=== PATIENT | male | born 1955 | race Caucasian/White ===

== ENCOUNTER 2016-08-14 18:00 | Emergency (ER) | payer MEDICAID ==
[~2016-08-14 18:00] MED LIST: ASPIRIN325 MG PO; NORVASC10 MG PO
[2016-08-14 18:25] LABS: BASOPHILS 0.3 % (0.0-2.0); EOSINOPHILS 2.4 % (0-7); HEMATOCRIT 45.7 % (42.0-54.0); HEMOGLOBIN 14.8 g/dL (13.5-17.5); IMMATURE GRANULOCYTES 0.2 % (0-5); LYMPHOCYTES 21.8 % (15-50); MCH 29.9 pg (26.0-34.0); MCHC 32.4 g/dL (31.0-37.0); MCV 92.3 fL (80.0-100.0); MEAN PLATELET VOLUME 10.8 fL (7.4-10.4); NEUTROPHILS 65.3 % (40-80); PLATELET COUNT 209 10x3/uL (130-400); RBC 4.95 10x6/uL (4.20-6.10); RDW 14.2 % (11.5-14.5); WBC 11.7 10x3/uL (4.8-10.8)
[2016-08-14 18:48] LABS: ALBUMIN 3.9 g/dL (3.4-5.0); ALKALINE PHOSPHATASE 66 U/L (46-116); ALT (SGPT) 27 U/L (10-68); BILIRUBIN - TOTAL 0.46 mg/dL (0.2-1.3); CALC OSMOLALITY 283 mosm/kg (275-300); CALCIUM 9.6 mg/dL (8.5-10.1); CHLORIDE - SERUM 101 mmol/L (98-107); CREATININE - SERUM 1.7 mg/dL (0.6-1.3); GLUCOSE 99 mg/dL (74-106); POTASSIUM - SERUM 4.4 mmol/L (3.5-5.1); PROTEIN - SERUM 7.6 g/dL (6.4-8.2); SODIUM 139 mmol/L (136-145); UREA NITROGEN 29 mg/dL (7-18); eGFR NON AFRICAN AMERICAN 44 mL/min (90-120)
[2016-08-14 18:58] LABS: TROPONIN-I < 0.017 ng/mL (0.000-0.060)
== END 2016-08-14 19:30 | disposition home or self-care (01) ==
LOC: D.ER 18:00
PROVIDERS: Emergency Medicine
DX: R00.2 Palpitations (principal); R53.83 Other fatigue; N28.9 Disorder of kidney and ureter, unspecified; I10 Essential (primary) hypertension; I44.7 Left bundle-branch block, unspecified

== ENCOUNTER 2016-10-07 08:02 | Emergency (ER) | payer MEDICAID ==
[2016-10-07 08:44] LABS: BASOPHILS 0.2 % (0.0-2.0); EOSINOPHILS 1.5 % (0-7); HEMATOCRIT 49.5 % (42.0-54.0); HEMOGLOBIN 16.3 g/dL (13.5-17.5); IMMATURE GRANULOCYTES 0.3 % (0-5); LYMPHOCYTES 13.2 % (15-50); MCH 30.2 pg (26.0-34.0); MCHC 32.9 g/dL (31.0-37.0); MCV 91.8 fL (80.0-100.0); MEAN PLATELET VOLUME 11.5 fL (7.4-10.4); NEUTROPHILS 76.8 % (40-80); PLATELET COUNT 197 10x3/uL (130-400); RBC 5.39 10x6/uL (4.20-6.10); RDW 14.1 % (11.5-14.5); WBC 11.8 10x3/uL (4.8-10.8)
[2016-10-07 09:00] LABS: ALBUMIN 3.8 g/dL (3.4-5.0); ANION GAP 15.6 mmol/L (8-16); BILIRUBIN - TOTAL 0.43 mg/dL (0.2-1.3); CALCIUM 9.9 mg/dL (8.5-10.1); CARBON DIOXIDE 25.9 mmol/L (21.0-32.0); CREATININE - SERUM 1.4 mg/dL (0.6-1.3); POTASSIUM - SERUM 4.5 mmol/L (3.5-5.1)
[2016-10-07 09:18] LABS: APPEARANCE CLEAR (CLEAR); BILIRUBIN NEGATIVE (NEGATIVE); COLOR YELLOW (YELLOW); GLUCOSE NEGATIVE (NEGATIVE); KETONE NEGATIVE (NEGATIVE); LEUKOCYTE ESTERASE NEGATIVE (NEGATIVE); NITRITE NEGATIVE (NEGATIVE); PROTEIN NEGATIVE (NEGATIVE); SPECIFIC GRAVITY 1.015 (1.005-1.020); UROBILINOGEN NORMAL (NORMAL)
== END 2016-10-07 10:45 | disposition home or self-care (01) ==
LOC: D.ER 08:02
PROVIDERS: Emergency Medicine
DX: R10.9 Unspecified abdominal pain (principal); R11.10 Vomiting, unspecified; R19.7 Diarrhea, unspecified; E86.0 Dehydration; S37.009A Unspecified injury of unspecified kidney, initial encounter; X58.XXXA Exposure to other specified factors, initial encounter; Y93.89 Activity, other specified; Y92.89 Other specified places as the place of occurrence of the external cause; I10 Essential (primary) hypertension; N28.9 Disorder of kidney and ureter, unspecified

== ENCOUNTER 2016-12-26 11:23 | Emergency (ER) | payer MEDICAID | END 2016-12-26 12:30 | disposition home or self-care (01) | LOC: D.ER 11:23 | DX: J06.9 Acute upper respiratory infection, unspecified (principal); J01.90 Acute sinusitis, unspecified; I10 Essential (primary) hypertension ==

== ENCOUNTER 2017-02-23 12:13 | Emergency (ER) | payer MEDICAID | END 2017-02-23 13:12 | disposition home or self-care (01) | LOC: D.ER 12:13 | DX: H66.91 Otitis media, unspecified, right ear (principal); J01.90 Acute sinusitis, unspecified; I10 Essential (primary) hypertension ==

== ENCOUNTER 2017-03-24 11:34 | Emergency (ER) | payer MEDICAID | END 2017-03-24 12:35 | disposition home or self-care (01) | LOC: D.ER 11:34 | DX: J01.90 Acute sinusitis, unspecified (principal) ==

== ENCOUNTER 2017-05-14 16:40 | Emergency (ER) | payer MEDICAID | END 2017-05-14 20:00 | disposition home or self-care (01) | LOC: D.ER 16:40 | DX: S53.402A Unspecified sprain of left elbow, initial encounter (principal); X50.0XXA Overexertion from strenuous movement or load, initial encounter; Y93.89 Activity, other specified; Y92.89 Other specified places as the place of occurrence of the external cause; I10 Essential (primary) hypertension ==

== ENCOUNTER 2017-07-12 10:39 | Emergency (ER) | payer MEDICAID ==
[2017-07-12 12:08] LABS: BASOPHILS 0.1 % (0-2); EOSINOPHILS 1.6 % (0-7); HEMATOCRIT 51.4 % (42.0-54.0); IMMATURE GRANULOCYTES 0.2 % (0-5); LYMPHOCYTES 16.3 % (15-50); MCH 30.7 pg (26.0-34.0); MCHC 33.1 g/dL (31.0-37.0); MCV 92.8 fL (80.0-100.0); MEAN PLATELET VOLUME 12.1 fL (7.4-10.4); MONOCYTES 6.9 % (2-11); NEUTROPHILS 74.9 % (40-80); PLATELET COUNT 200 10x3/uL (130-400); RBC 5.54 10x6/uL (4.20-6.10); RDW 13.9 % (11.5-14.5); WBC 9.2 10x3/uL (4.8-10.8)
[2017-07-12 12:29] LABS: ALBUMIN 4.1 g/dL (3.4-5.0); BILIRUBIN - TOTAL 0.5 mg/dL (0.2-1.3); CALCIUM 10.4 mg/dL (8.5-10.1); CARBON DIOXIDE 28.1 mmol/L (21.0-32.0); CREATININE - SERUM 1.4 mg/dL (0.6-1.3); POTASSIUM - SERUM 4.1 mmol/L (3.5-5.1); PROTEIN - SERUM 8.1 g/dL (6.4-8.2)
== END 2017-07-12 13:35 | disposition home or self-care (01) ==
LOC: D.ER 10:39
PROVIDERS: Nurse Practitioner Family
DX: J06.9 Acute upper respiratory infection, unspecified (principal); R42 Dizziness and giddiness

== ENCOUNTER → 2017-08-01 13:05 | Outpatient (CLI) | payer MEDICAID ==
--- NOTE | ~2017-08-01 | EC ---
PATIENT:ALMA ALMANZAR DATE OF SERVICE: 08/01/17 SEX: M MEDICAL RECORD: [id number] DATE OF : 51 LOCATION:[facility] AGE OF PATIENT: 61 ADMISSION DATE: 08/01/17 REFERRING PHYSICIAN: INTERPRETING PHYSICIAN: CORBY SEALS MD ECHOCARDIOGRAM REPORT ECHO CHARGES 4 ECHO COMPLETE CLINICAL DIAGNOSIS: DYSPNEA/ HTN/LBBB ECHOCARDIOGRAPHIC MEASUREMENTS (adult normal given) AC root (d.<3.7cm) 4.1 cm LV Septum d (<1.2 cm> 1.5 cm Valve Excursion 1.7 cm LV Septum (systole) 1.9 cm Left Atria (s.<4.0cm> 3.8 cm LVPW d(<1.2cm) 1.5 cm RV (d.<2.3cm) 4.1 cm LVPW (sytole) 1.8 cm LV diastole(<5.6CM) 5.5 cm MV E-F(>70mm/sec) cm LV systole 3.9 cm LVOT Diameter 2.6 cm MV exc.(>10mm) 2.3 cm Est.ejection fraction (50-75%) % Pericardial Effusion N DOPPLER: LVIT cm/sec A 82.0 cm/sec E 64.0 cm/sec LA cm/sec RVSP 20 mmHg LVOT 90 cm/sec AOP1/2T m/s Asc. Ao 153 cm/sec RVOT 98 cm/sec RA cm/sec PA 178 cm/sec AV Gradient Peak 9.11 mmHg AV Mean 5.50 mmHg AV Area 2.5 cm MV Gradient Peak 4.16 mmHg MV Mean 1.54 mmHg MV Area cm COMMENTS: Remotely Piloted Vehicle Controller: Dharmesh SALGADO Gift Manager: Allan Seals TAPE# PACS DATE OF SERVICE: 08/01/2017 Transthoracic Echocardiogram FINDINGS: 1. There is asynchronous wall motion consistent with bundle branch block. 2. The left atrium is upper limits of normal to mildly dilated. 3. The mitral valve has normal structure and normal function with no significant mitral regurgitation. 4. The tricuspid valve is normal in structure and normal function. The RVSP is ECHOCARDIOGRAM REPORT [id number] ALMA ALMANZAR normal. 5. The inflow characteristics across the mitral valve indicate diastolic dysfunction. 6. On wall motion analysis in the left ventricle, it is difficult to see endocardium but there is the suggestion of mild inferior lateral hypokinesis versus the asynchronous wall motion. CONCLUSIONS: The patient has evidence of left ventricular hypertrophy and hypertensive heart disease with possible wall motion abnormality in the inferior lateral aspect of the heart consistent with a mild decrease in systolic function with ejection fraction of 45% to 50%. TRANSINT:[id number] Voice Confirmation ID: [id number] DOCUMENT ID: [id number] CORBY SEALS MD CC: [id number] DICTATION DATE: 08/01/171653 STOCK PARTS FABRICATOR: 08/01/172033 [facility] [address] [id number]
== END | disposition home or self-care (01) ==
LOC: D.ECHO 13:05
DX: R06.00 Dyspnea, unspecified (principal); I10 Essential (primary) hypertension; I44.7 Left bundle-branch block, unspecified

== ENCOUNTER 2017-08-15 06:01 | Outpatient (CLI) | payer MEDICAID ==
[~2017-08-15] VITALS: Ht 182.9 cm; Wt 121.4 kg
--- NOTE | ~2017-08-15 | HEMODYNAMI ---
PATIENT:ALMA ALMANZAR MEDICAL RECORD: [id number] : 51 LOCATION:[facility] ADMISSION DATE: 08/15/17 Generatedon:08/15/20178:19 Patient name: ALMA ALMANZAR Patient #: [id number] SSN: DO B: 1955 Date of study: 08/15/2017 Page: Of Hemodynamic Procedure Report Patient Data Patient Demographics Procedure consent was obtained First Name: ALMA Gender: Male Last Name: JENELLE : 1955 [facility] Initial: KENDRA Age: 61 year(s) Patient #: [id number] Race: Unknown Additional ID: [id number] Contact details [address]: [address] [place] [address] rd State: [place] City: [place] Zip code: [address] Past Medical History Allergies Allergen Reaction Date Comments Reported Other allergy 08/15/2017 keflex, levaquin Admission Admission Data Admission Date: 08/15/2017 Admission Time: 6:01 Procedure Procedure Types Cath Procedure Diagnostic Procedure LHC LHC w/Coronaries Procedure Description Procedure Date Procedure Date: 08/15/2017 Procedure Start Time: 8:07 Procedure End Time: 8:19 Procedure Staff Name Function Eduardo Roberts MD Performing Physician Sheila Peterson RT Monitor Mj Lr RT Scrub Jeff Morales RN Nurse Procedure Data Cath Procedure Fluoroscopy Diagnostic fluoroscopy Total fluoroscopy Time: 3.1 time: 3.1 min min Diagnostic fluoroscopy Total fluoroscopy dose: 3.1 dose: 3.1 mGy mGy Contrast Material Contrast Material Type Amount (ml) Isovue 300 60 Entry Location Entry Primary Successful Side Size Upsize Upsize Entry Closure Gonsalez ccessful Closure Location (Fr) 1 (Fr) 2 (Fr) Remarks Device Remarks Radial Right 6 Fr Mechanical artery Short Compression Estimated blood loss: 5 ml Diagnostic catheters Device Type Used For End Catheter Placement DIAGNOSTIC Suring 110cm 5 LV Angiography Fr catheter ([id number]) DIAGNOSTIC Suring 110cm 5 Left Coronary Fr catheter (078441) Angiography DIAGNOSTIC AR MOD 5Fr Right Coronary Catheter ([id number]) Angiography Procedure Complications No complications Procedure Medications Medication Administration Route Dosage Lidocaine 2% added to field 20 Heparin Flush Bag added to field 2 bags (1000units/500ml NS) 0.9% NaCl I.V. 100 ml/hr Radial Cocktail I.A. 1 syringe (Verapomil 2mg/Nitro 400mcg/Heparin 1500units) Benadryl I.V. 50 mg Hemodynamics Rest Heart Rate: 102 (bpm) Pressure Samples Time Site Value (mmHg) Purpose Heart Use Rate(bpm) 8:10 LV 132/1,4 EDP 57 8:10 AO 134/86(105) Pullback 89 8:10 LV 141/4,0 Pullback 89 Gradients Valve Time Site 1 Site 2 Mean SEP/DFP Peak To Heart Use (mmHg) (sec/min) Peak Rate (mmHg) (bpm) Aortic 8:10 LV AO 6 6 7 89 141/4,0 134/86(105) Calculations Valve P-P Mean Valve Index Valve Source Name Gradient Area Flow (cm2) Aortic 7 6 7 6 Snapshots Pre Cath Intra NCS Post Cath Vital Signs Time Heart Resp SPO2 etCO2 NIBP (mmHg) Rhythm Pain Sedation Rate (ipm) (%) (mmHg) Status Level (bpm) 7:54:08 66 12 98 33.8 183/99(140) NSR 0 (11) 10(A) , No pain 7:59:11 63 12 97 30.8 133/101(126) NSR 0 (11) 10(A) , No pain 8:04:53 70 15 97 34.5 181/87(146) NSR 0 (11) 10(A) , No pain 8:10:31 85 13 97 26.3 175/100(137) NSR 0 (11) 10(A) , No pain 8:15:30 76 14 95 29.3 178/97(127) NSR 0 (11) 10(A) , No pain Medications Time Medication Route Dose Verified Delivered Reason Notes E ffectiveness by by 7:54:45 Lidocaine 2% added 20ml Eduardo Eduardo for local to vial Alejandra Roberts MD anesthetic field AYALA 7:54:54 Heparin Flush added 2 bags Eduardo Eduardo used for Bag to Alejandra Roberts MD procedure (1000units/500ml field AYALA NS) 7:55:03 0.9% NaCl I.V. 100 Eduardo Buffie Per ml/hr Alejandra castro MD 8:08:17 Radial Cocktail I.A. 1 Eduardo Eduardo for (Verapomil syringe Alejandra Roberts MD vasodilation 2mg/Nitro MD 400mcg/Heparin 1500units) 8:10:59 Benadryl I.V. 50 mg Eduardo Buffie Per Alejandra castro MD Procedure Log Time Note 7:36:46 Jeff Morales RN sent for patient. Start room use. 7:36:48 Time tracking: Regular hours 7:36:53 Plan of Care:Hemodynamics will remain stable., Cardiac rhythm will remain stable., Comfort level will be maintained., Respiratory function will remain adequate., Patient/ family verbilizes understanding of procedure., Procedure tolerated without complication., Recovers from procedure without complications.. 7:45:08 Patient received from Pre/Post Procedure Room to CCL 1 Alert and oriented. Tansferred to table in Supine position. 7:45:09 Warm blankets applied, and mary ellen hugger turned on for patient comfort. 7:45:09 Correct patient and procedure confirmed by team. 7:45:11 Signed procedure consent form obtained from patient. 7:45:12 ECG and BP/O2 sat monitors applied to patient. 7:45:12 Full Disclosure recording started 7:52:59 Vital chart was started 7:53:03 Rhythm: sinus rhythm 7:53:14 H&P Date Dictated: 08/10/2017 Within 30 days and on chart., H&P Addendum completed by physician on day of procedure. (MUST COMPLETE FOR ALL OUTPATIENTS). 7:53:15 Pre-procedure instructions explained to patient. 7:53:16 Pre-op teaching completed and patient verbalized understanding. 7:53:17 Family in waiting room. 7:53:21 Patient NPO since Midnight. 7:53:38 Patient allergic to Other allergykeflex, levaquin 7:53:40 Is the patient allergic to Iodine/contrast media? No. 7:53:42 Is patient on blood thinner?No 7:53:51 Patient diabetic? Yes. 7:53:53 If diabetic: On Metformin? Yes 7:53:55 If on Metformin: Last Dose? 08/13/2017 7:53:58 Previous problem with sedation/anesthesia? No ? 7:53:59 Snore? Yes 7:54:01 Sleep apnea? No 7:54:02 Deviated septum? No 7:54:02 Opens mouth fully? Yes 7:54:03 Sticks out tongue? Yes 7:54:06 Airway obstruction? No ? 7:54:09 Dentures? No ? 7:54:18 Modified Avtar's test Ulnar < 7 seconds 7:54:20 Patient pain scale 0/10 ?. 7:54:45 Lidocaine 2% 20ml vial added to field was administered by Eduardo Roberts MD; for local anesthetic; 7:54:54 Heparin Flush Bag (1000units/500ml NS) 2 bags added to field was administered by Eduardo Roberts MD; used for procedure; 7:55:03 0.9% NaCl 100 ml/hr I.V. was administered by Jeff Morales RN; Per physician; 7:55:19 PATIENT WANTS TO DRIVE HIMSELF HOME. REFUSES TO LET US PREP GROIN. NO SEDATION WILL BE GIVEN. 7:55:44 IV patent on arrival in right forearm with 0.9% NaCl at [facility]. 7:55:47 Lab results completed and on chart. 7:55:51 Right Radial area was prepped with chlora-prep and draped in sterile fashion 7:55:52 Alarms reviewed by R. N. 7:55:53 Sharps counted by scrub and verified by R.N. 7:55:56 Use device set Radial Dx or PCI 7:55:57 Medline Cath Pack ([id number]) opened to sterile field. 7:55:58 ACIST Syringe (00189) opened to sterile field. 7:55:58 Bag Decanter (2002) opened to sterile field. 7:55:59 SHEATH 6FR Slender ([id number]) opened to sterile field. 7:55:59 DIAGNOSTIC WIRE .035 260cm J wire (599302) opened to sterile field. 7:56:00 ACIST Hand Control (53577) opened to sterile field. 7:56:00 ACIST Manifold (84052) opened to sterile field. 7:56:01 Tegaderm 4 x 4 (1626W) opened to sterile field. 7:56:02 MBrace Wrist Support ([id number]) opened to sterile field. 7:57:18 Final Timeout: patient, procedure, and site verified with staff and physician. All members of the team are in agreement. 7:57:26 Right Radial site verified by team. 7:57:30 Physical assessment completed. ASA score P 2 - A patient with mild systemic disease as per Eduardo Roberts MD. 7:57:34 Sedation plan: IV Moderate Sedation Medication:Versed, Fentanyl 8:00:18 Baseline sample Acquired. 8:05:58 Zero performed for pressure channel P1 8:07:09 Procedure started. 8:07:13 Local anesthetic to right radial artery with Lidocaine 2% by Eduardo Roberts MD.INITIAL ACCESS ONLY 8:07:22 A 6 Fr Short sheath was inserted into the Right Radial artery 8:08:13 A DIAGNOSTIC Suring 110cm 5 Fr catheter (178009) was advanced over the wire and used for LV Angiography. 8:08:17 Radial Cocktail (Verapomil 2mg/Nitro 400mcg/Heparin 1500units) 1 syringe I.A. was administered by Eduardo Roberts MD; for vasodilation; 8:10:23 LV gram done using [place] 8:10:25 LV hemodynamics recorded. 8:10:28 Injector settings: Ml/sec: 12, Volume: 8, 8:10:59 Benadryl 50 mg I.V. was administered by Jeff Morales RN; Per physician; 8:11:13 A DIAGNOSTIC Suring 110cm 5 Fr catheter (400658) was advanced over the wire and used for Left Coronary Angiography. 8:12:33 Catheter removed. 8:12:43 A DIAGNOSTIC AR MOD 5Fr Catheter ([id number]) was advanced over the wire and used for Right Coronary Angiography. 8:15:01 Catheter removed. 8:15:11 Sheath removed intact; hemostasis achieved with Mechanical Compression to the Right Radial artery. 8:15:13 Procedure ended.(Physican Out) 8:15:29 Fluoroscopy time 03.10 minutes. 8:15:34 Fluoroscopy dose: 3.1 mGy 8:15:34 Flurop Dose total: 3.1 8:15:56 Contrast amount:Isovue 300 60ml. 8:15:58 Sharps counted by scrub and verified by R.N. 8:16:00 TR band inflated with 12cc of air. 8:16:01 Insertion/operative site no bleeding no hematoma. 8:16:07 Post right radial artery:stable, clean and dry 8:16:09 Post Procedure Pulses reassessed and unchanged 8:16:11 Post-procedure physical assessment completed. ASA score P 2 - A patient with mild systemic disease as per Eduardo Roberts MD. 8:16:14 Post procedure rhythm: unchanged. 8:16:16 Estimated blood loss: 5 ml 8:16:18 Post procedure instruction explained to patient.Patient verbalizes understanding. 8:16:18 Patient needs reinforcement of post procedure teaching. 8:16:41 Procedure and supply charges have been captured, reviewed, submitted and are correct. 8:16:45 Procedure Complication : No complications 8:16:48 See physician's report for complete and final results. 8:17:00 TR BAND Standard ([id number]) opened to sterile field. 8:18:50 Vital chart was stopped 8:18:52 Report given to Pre/Post Procedure Room. 8:18:55 Patient transfered to Pre/Post Procedure Room with Stretcher. 8:19:02 Procedure ended. 8:19:02 Full Disclosure recording stopped 8:19:06 End room use (Document Last) Device Usage Item Name Manufacture Quantity Catalog Hospital Part Current Minima l Lot# / Number Charge Number Stock Stock Serial# Code Medline Cath Cardinal 1 [id number] 31108 418840 5 [facility] ([id number]) ACIST Acist 1 00283 307694 954769 449093 20 Syringe Medical (24482) Systems Inc Bag Decanter Microtek 1 2001S 974834 72405 835935 5 () Medical Inc. SHEATH 6FR Terumo 1 [id number] 890119 449439 517064 40 Slender ([id number]) DIAGNOSTIC St Trey 1 179576 604551 006980 061689 30 WIRE .035 260cm J wire (022843) ACIST Hand Acist 1 10012 414795 245869 911699 5 Control Medical (92955) Systems Inc ACIST Acist 1 84746 846288 331425 067737 5 Manifold Medical (08582) Systems Inc Tegaderm 4 x 3M 1 1626W 612998 117770 670658 5 4 (1626W) MBrace Wrist Advanced 1 140-0250-00 908585 62284 136714 5 Support Vascular ([id number]) Dynamics DIAGNOSTIC Terumo 1 405019 092720 892848 559287 5 Suring 110cm 5 Fr catheter (183453) DIAGNOSTIC Cardinal 1 [id number] 054886 508530 779480 15 AR MOD 5Fr Health Catheter (103238J) TR BAND Terumo 1 PFT61-PES 707266 217858 254621 40 Standard ([id number]) Signature Audit [place] Stage Time Signature Unsigned Intra-Procedure 08/15/2017 Sheila 8:19:19 AM Counts RT(R) Signatures Monitor : Sheila Signature : Counts RT Date : Time : [id number] [place] [address]
[2017-08-15] MEDS ORDERED: TOPROL XL50 MG PO (06:19)
[2017-08-15] MEDS ORDERED: PRINIVIL20 MG (06:20)
[2017-08-15] MEDS ORDERED: CLEOCIN HCL300 MG PO (06:21)
[2017-08-15 06:29] VITALS: BP 121/82; Ht 182.9 cm; Wt 121.4 kg
[2017-08-15 07:03] LABS: HEMATOCRIT 46.4 % (42.0-54.0); HEMOGLOBIN 15.2 g/dL (13.5-17.5); LYMPHOCYTES 31.1 % (15-50); MCH 29.6 pg (26.0-34.0); MCHC 32.8 g/dL (31.0-37.0); MCV 90.3 fL (80.0-100.0); MEAN PLATELET VOLUME 10.9 fL (7.4-10.4); NEUTROPHILS 60.7 % (40-80); PLATELET COUNT 175 10x3/uL (130-400); RBC 5.14 10x6/uL (4.20-6.10); RDW 14.4 % (11.5-14.5); WBC 7.2 10x3/uL (4.8-10.8)
[2017-08-15 07:07] LABS: ANION GAP 13.1 mmol/L (8-16); CALCIUM 9.1 mg/dL (8.5-10.1); CARBON DIOXIDE 24.7 mmol/L (21.0-32.0); CREATININE - SERUM 1.2 mg/dL (0.6-1.3); POTASSIUM - SERUM 3.8 mmol/L (3.5-5.1)
== END 2017-08-15 10:39 | disposition home or self-care (01) ==
LOC: D.CATH 06:01
PROVIDERS: Internal Medicine Cardiovascular Disease
DX: I25.10 Atherosclerotic heart disease of native coronary artery without angina pectoris (principal); I42.9 Cardiomyopathy, unspecified; E16.2 Hypoglycemia, unspecified; K58.9 Irritable bowel syndrome, unspecified; Z01.812 Encounter for preprocedural laboratory examination

== ENCOUNTER → 2017-12-13 12:25 | Outpatient (CLI) | payer MEDICAID ==
[2017-08-15 06:29] VITALS: BMI 36.3
[~2017-12-13 12:25] MED LIST changes: +BACTRIM DS TABL1 TAB PO; +CLEOCIN HCL300 MG PO; +DIFLUCAN100 MG PO; +FLAGYL500 MG PO; +FLORASTOR250 MG PO; +PRINIVIL20 MG; +TOPROL XL50 MG PO
== END | disposition home or self-care (01) ==
LOC: D.MRI 12:25
DX: R97.20 Elevated prostate specific antigen [PSA] (principal)

== ENCOUNTER 2018-01-15 23:33 | Emergency (ER) | payer MEDICAID ==
[~2018-01-15] VITALS: Ht 182.9 cm; Wt 118.6 kg
[~2018-01-15 23:33] MED LIST changes: -BACTRIM DS TABL1 TAB PO; -DIFLUCAN100 MG PO; -FLAGYL500 MG PO; -FLORASTOR250 MG PO
[2018-01-15 23:41] VITALS: Ht 182.9 cm; Wt 118.6 kg
[2018-01-16] MEDS ORDERED: BACTRIM DS TABL1 TAB PO (00:29)
[2018-01-16] MEDS ORDERED: DIFLUCAN100 MG PO (00:29)
[2018-01-16 00:37] VITALS: BP 128/79
[2018-03-12] MEDS ORDERED: CLEOCIN HCL300 MG PO (12:30)
[2018-03-12] MEDS ORDERED: FLUTICASONE PRO16 GM NASAL (12:32)
== END 2018-01-16 00:41 | disposition home or self-care (01) ==
LOC: D.ER 23:33
DX: L03.012 Cellulitis of left finger (principal); B35.2 Tinea manuum; I50.9 Heart failure, unspecified; I10 Essential (primary) hypertension

== ENCOUNTER 2018-01-31 04:32 | Emergency (ER) | payer MEDICAID ==
[~2018-01-31] VITALS: Ht 182.9 cm; Wt 118.2 kg
[~2018-01-31 04:32] MED LIST changes: +BACTRIM DS TABL1 TAB PO; +DIFLUCAN100 MG PO
[2018-01-31 05:02] VITALS: Ht 182.9 cm; Wt 118.2 kg
[2018-01-31 05:55] LABS: BASOPHILS 0.2 % (0-2); EOSINOPHILS 1.4 % (0-7); HEMATOCRIT 45.9 % (42.0-54.0); HEMOGLOBIN 15.1 g/dL (13.5-17.5); IMMATURE GRANULOCYTES 0.2 % (0-5); MCH 30.4 pg (26.0-34.0); MCHC 32.9 g/dL (31.0-37.0); MCV 92.4 fL (80.0-100.0); MEAN PLATELET VOLUME 10.8 fL (7.4-10.4); NEUTROPHILS 78.2 % (40-80); PLATELET COUNT 194 10x3/uL (130-400); RBC 4.97 10x6/uL (4.20-6.10); RDW 14.2 % (11.5-14.5); WBC 13.2 10x3/uL (4.8-10.8)
[2018-01-31 06:32] LABS: ALBUMIN 3.5 g/dL (3.4-5.0); ALKALINE PHOSPHATASE 64 U/L (46-116); ALT (SGPT) 19 U/L (10-68); AMYLASE - SERUM 62 U/L (25-115); BILIRUBIN - TOTAL 0.43 mg/dL (0.2-1.3); CALC OSMOLALITY 282 mosm/kg (275-300); CALCIUM 9.6 mg/dL (8.5-10.1); CARBON DIOXIDE 30.4 mmol/L (21.0-32.0); CHLORIDE - SERUM 102 mmol/L (98-107); CREATININE - SERUM 1.6 mg/dL (0.6-1.3); GLUCOSE 101 mg/dL (74-106); LIPASE 341 U/L (73-393); POTASSIUM - SERUM 4.2 mmol/L (3.5-5.1); PROTEIN - SERUM 7.1 g/dL (6.4-8.2); SODIUM 140 mmol/L (136-145); UREA NITROGEN 24 mg/dL (7-18); eGFR NON AFRICAN AMERICAN 46 mL/min (90-120)
[2018-01-31 06:34] LABS: TROPONIN-I < 0.017 ng/mL (0.000-0.060)
[2018-01-31 07:08] LABS: APPEARANCE HAZY (CLEAR); BILIRUBIN NEGATIVE (NEGATIVE); COLOR YELLOW (YELLOW); GLUCOSE NEGATIVE (NEGATIVE); KETONE NEGATIVE (NEGATIVE); NITRITE NEGATIVE (NEGATIVE); PROTEIN NEGATIVE (NEGATIVE); SPECIFIC GRAVITY 1.015 (1.005-1.020); UROBILINOGEN NORMAL (NORMAL)
[2018-01-31 07:10] LABS: BACTERIA FEW /hpf (NONE SEEN); EPITHELIAL CELLS OCC /hpf (0-5); GRANULAR CAST RARE /lpf (NONE SEEN); MUCUS <1+ /lpf (NONE SEEN); WHITE CELLS - URINE 0-5 /hpf (0-5)
[2018-01-31] MEDS ORDERED: FLORASTOR250 MG PO (08:49)
[2018-01-31] MEDS ORDERED: FLAGYL500 MG PO (08:49)
[2018-01-31 09:23] VITALS: BP 152/84
[2018-03-12] MEDS ORDERED: CLEOCIN HCL300 MG PO (12:30)
[2018-03-12] MEDS ORDERED: FLUTICASONE PRO16 GM NASAL (12:32)
== END 2018-01-31 09:20 | disposition home or self-care (01) ==
LOC: D.ER 04:32
PROVIDERS: Family Medicine
DX: R10.9 Unspecified abdominal pain (principal); K52.9 Noninfective gastroenteritis and colitis, unspecified; K56.7 Ileus, unspecified; R11.0 Nausea; I10 Essential (primary) hypertension

== ENCOUNTER 2018-02-06 01:21 | Emergency (ER) | payer MEDICAID ==
[~2018-02-06] VITALS: Ht 182.9 cm; Wt 113.4 kg
[~2018-02-06 01:21] MED LIST changes: +FLAGYL500 MG PO; +FLORASTOR250 MG PO
[2018-02-06 01:33] VITALS: Ht 182.9 cm; Wt 113.4 kg
[2018-02-06 02:11] LABS: BASOPHILS 0.2 % (0-2); EOSINOPHILS 1.1 % (0-7); HEMATOCRIT 45.3 % (42.0-54.0); HEMOGLOBIN 15.1 g/dL (13.5-17.5); IMMATURE GRANULOCYTES 0.2 % (0-5); LYMPHOCYTES 10.7 % (15-50); MCH 30.6 pg (26.0-34.0); MCHC 33.3 g/dL (31.0-37.0); MCV 91.9 fL (80.0-100.0); MEAN PLATELET VOLUME 10.4 fL (7.4-10.4); MONOCYTES 6.2 % (2-11); NEUTROPHILS 81.6 % (40-80); PLATELET COUNT 192 10x3/uL (130-400); RBC 4.93 10x6/uL (4.20-6.10); WBC 11.7 10x3/uL (4.8-10.8)
[2018-02-06 02:23] LABS: ALBUMIN 3.7 g/dL (3.4-5.0); BILIRUBIN - TOTAL 0.24 mg/dL (0.2-1.3); CALCIUM 9.5 mg/dL (8.5-10.1); CREATININE - SERUM 1.6 mg/dL (0.6-1.3); PROTEIN - SERUM 7.5 g/dL (6.4-8.2)
[2018-02-06 02:46] LABS: APPEARANCE HAZY (CLEAR); BILIRUBIN NEGATIVE (NEGATIVE); COLOR DK YELLOW (YELLOW); GLUCOSE NEGATIVE (NEGATIVE); KETONE NEGATIVE (NEGATIVE); NITRITE NEGATIVE (NEGATIVE); PROTEIN 1+ mg/dL (NEGATIVE); UROBILINOGEN NORMAL (NORMAL)
[2018-02-06 02:47] LABS: BACTERIA MODERATE /hpf (NONE SEEN); EPITHELIAL CELLS 0-5 /hpf (0-5); HYALINE CAST 0-5 /lpf (NONE SEEN); RED CELLS - URINE 0-5 /hpf (0-5)
[2018-02-06] MEDS ORDERED: ZOFRAN ODT4 MG/UDTAB PO (03:19)
[2018-02-06 03:26] VITALS: BP 147/93
[2018-03-12] MEDS ORDERED: CLEOCIN HCL300 MG PO (12:30)
[2018-03-12] MEDS ORDERED: FLUTICASONE PRO16 GM NASAL (12:32)
== END 2018-02-06 04:52 | disposition home or self-care (01) ==
LOC: D.ER 01:21
PROVIDERS: Family Medicine
DX: R10.9 Unspecified abdominal pain (principal); R11.2 Nausea with vomiting, unspecified; I10 Essential (primary) hypertension

== ENCOUNTER → 2018-02-09 07:50 | Outpatient (CLI) | payer MEDICAID ==
[2018-02-06 01:33] VITALS: BMI 35.3
[~2018-02-09 07:50] MED LIST changes: +FLOMAX0.4 MG PO; +FLUTICASONE PRO16 GM NASAL; +NORCO 10-325 TA1 TAB PO; +NORCO 7.5/325 T1 TA1 PO; +ZOFRAN ODT4 MG/UDTAB PO
== END | disposition home or self-care (01) ==
LOC: D.US 07:50
DX: R10.11 Right upper quadrant pain (principal)

== ENCOUNTER 2018-02-10 22:22 | Emergency (ER) | payer MEDICAID ==
[~2018-02-10] VITALS: Ht 182.9 cm; Wt 110.0 kg
[~2018-02-10 22:22] MED LIST changes: -FLOMAX0.4 MG PO; -FLUTICASONE PRO16 GM NASAL; -NORCO 10-325 TA1 TAB PO; -NORCO 7.5/325 T1 TA1 PO
[2018-02-10 22:27] VITALS: Ht 182.9 cm; Wt 110.0 kg
[2018-02-10 23:25] LABS: HEMATOCRIT 42.7 % (42.0-54.0); HEMOGLOBIN 14.4 g/dL (13.5-17.5); LYMPHOCYTES 10.7 % (15-50); MCH 30.5 pg (26.0-34.0); MCHC 33.7 g/dL (31.0-37.0); MCV 90.5 fL (80.0-100.0); MEAN PLATELET VOLUME 10.2 fL (7.4-10.4); NEUTROPHILS 81.8 % (40-80); PLATELET COUNT 195 10x3/uL (130-400); RBC 4.72 10x6/uL (4.20-6.10); RDW 13.6 % (11.5-14.5)
[2018-02-10 23:39] LABS: ALBUMIN 3.4 g/dL (3.4-5.0); ANION GAP 12.2 mmol/L (8-16); BILIRUBIN - TOTAL 0.33 mg/dL (0.2-1.3); CALCIUM 8.6 mg/dL (8.5-10.1); CARBON DIOXIDE 29.6 mmol/L (21.0-32.0); CREATININE - SERUM 1.4 mg/dL (0.6-1.3); POTASSIUM - SERUM 3.8 mmol/L (3.5-5.1); PROTEIN - SERUM 7.1 g/dL (6.4-8.2)
[2018-02-10] MEDS ORDERED: NORCO 7.5/325 T1 TA1 PO (23:48)
[2018-02-11 01:55] VITALS: BP 126/69
[2018-03-12] MEDS ORDERED: CLEOCIN HCL300 MG PO (12:30)
[2018-03-12] MEDS ORDERED: FLUTICASONE PRO16 GM NASAL (12:32)
== END 2018-02-11 00:58 | disposition home or self-care (01) ==
LOC: D.ER 22:22
PROVIDERS: Emergency Medicine
DX: K80.50 Calculus of bile duct without cholangitis or cholecystitis without obstruction (principal); K80.20 Calculus of gallbladder without cholecystitis without obstruction; I10 Essential (primary) hypertension

== ENCOUNTER 2018-03-13 07:36 | Day surgery (SDC) | payer MEDICAID ==
[~2018-03-13] VITALS: Ht 182.9 cm; Wt 112.5 kg
--- NOTE | ~2018-03-13 | OP ---
PATIENT NAME: ALMA ALMANZAR MEDICAL RECORD: [id number] :51 LOCATION:D.[facility] ADMISSION DATE: SURGEON: SANTANA DE LA ROSA MD DATE OF OPERATION: 03/13/2018 PREOPERATIVE DIAGNOSES: 1. Biliary dyskinesia. 2. Hypertension. 3. Coronary artery disease with history of CT. POSTOPERATIVE DIAGNOSES: 1. Biliary dyskinesia. 2. Hypertension. 3. Coronary artery disease with history of CT. PROCEDURE: Laparoscopic cholecystectomy. SURGEON: Santana De La Rosa MD REPORT OF PROCEDURE: The patient's abdomen was prepped and draped in sterile fashion. A skin incision was made on the superior aspect of the umbilicus, 0 Vicryls were placed in the fascia bilaterally and the fascia was incised with 15-blade. I then bluntly entered the peritoneal cavity and placed a 12-mm Franck port. Under direct visualization, a 5 mm trocar was placed in the epigastrium and 2 more 5-mm trocars were placed in the right subcostal region. The gallbladder was noted to be distended with some acute inflammatory changes on its inferior aspect. Any inflammatory changes and adhesions were teased down with blunt dissection. The cystic artery and cystic duct were dissected free and these were clipped proximally and distally and ligated in standard fashion. The gallbladder was taken off the liver bed and placed in the right upper quadrant. Any bleeding from the liver bed was then treated with electrocautery. We irrigated out the right upper quadrant and assured there was no sign of any bleeding or bile leakage. At this point, the ports and insufflation were removed and the gallbladder was taken out through the umbilicus. The umbilical fascia was closed with interrupted 0 Vicryls times 3. The wounds were then irrigated out with normal saline and infused with 10 mL of 0.25% Marcaine with epinephrine. The skin incisions were all closed with subcutaneous 5-0 Monocryl and dressed appropriately. COMPLICATIONS: None. CONDITION: Stable. ANESTHESIA: General endotracheal and local. BLOOD LOSS: Minimal. TRANSINT:[id number] Voice Confirmation ID: [id number] DOCUMENT ID: [id number] OPERATIVE REPORT [id number] ALMA ALMANZAR SANTANA DE LA ROSA MD CC: JAI WILLIS [id number] DICTATION DATE: 03/13/18 1301 SAT ACT INSTRUCTOR: 03/13/18 1306 [facility] [address] [facility] [place] [address]
[~2018-03-13 07:36] MED LIST changes: +FLUTICASONE PRO16 GM NASAL; +NORCO 7.5/325 T1 TA1 PO
[2018-03-13 07:51] LABS: HEMATOCRIT 45.2 % (42.0-54.0); HEMOGLOBIN 15.1 g/dL (13.5-17.5); MCH 30.9 pg (26.0-34.0); MCHC 33.4 g/dL (31.0-37.0); MCV 92.4 fL (80.0-100.0); RBC 4.89 10x6/uL (4.20-6.10); RDW 14.4 % (11.5-14.5); WBC 8.1 10x3/uL (4.8-10.8)
[2018-03-13 08:33] VITALS: BP 147/84; Ht 182.9 cm; Wt 112.5 kg
[2018-03-13] MEDS ORDERED: NORCO 10-325 TA1 TAB PO (12:58)
[2018-03-13] MEDS ORDERED: FLOMAX0.4 MG PO (21:13)
== END 2018-03-13 15:05 | disposition home or self-care (01) ==
LOC: D.OPS 07:36 → D.PAN 09:30 → D.OPS 10:00
PROVIDERS: Anesthesiology
DX: K80.10 Calculus of gallbladder with chronic cholecystitis without obstruction (principal); I10 Essential (primary) hypertension; I25.10 Atherosclerotic heart disease of native coronary artery without angina pectoris; I25.2 Old myocardial infarction; Z01.812 Encounter for preprocedural laboratory examination

== ENCOUNTER 2018-03-13 19:11 | Emergency (ER) | payer MEDICAID ==
[~2018-03-13] VITALS: Ht 182.9 cm; Wt 108.2 kg
[~2018-03-13 19:11] MED LIST changes: +NORCO 10-325 TA1 TAB PO
[2018-03-13 19:19] VITALS: Ht 182.9 cm; Wt 108.2 kg
[2018-03-13 20:55] LABS: APPEARANCE CLEAR (CLEAR); BILIRUBIN NEGATIVE (NEGATIVE); COLOR YELLOW (YELLOW); GLUCOSE NEGATIVE (NEGATIVE); KETONE NEGATIVE (NEGATIVE); NITRITE NEGATIVE (NEGATIVE); PROTEIN NEGATIVE (NEGATIVE); UROBILINOGEN NORMAL (NORMAL)
[2018-03-13 20:57] LABS: BACTERIA FEW /hpf (NONE SEEN); WHITE CELLS - URINE 0-5 /hpf (0-5)
[2018-03-13] MEDS ORDERED: FLOMAX0.4 MG PO (21:13)
[2018-03-13 21:42] VITALS: BP 140/74
== END 2018-03-13 21:42 | disposition home or self-care (01) ==
LOC: D.ER 19:11
PROVIDERS: Family Medicine
DX: R33.9 Retention of urine, unspecified (principal); N40.0 Benign prostatic hyperplasia without lower urinary tract symptoms; I10 Essential (primary) hypertension

== ENCOUNTER 2018-12-06 20:31 | Emergency (ER) | payer MEDICARE ==
[~2018-12-06] VITALS: Ht 182.9 cm; Wt 112.7 kg
[~2018-12-06 20:31] MED LIST changes: +FLOMAX0.4 MG PO
[2018-12-06 20:50] VITALS: Ht 182.9 cm; Wt 112.7 kg
[2018-12-06] MEDS ORDERED: TORADOL10 MG PO (22:25)
== END 2018-12-06 22:50 | disposition home or self-care (01) ==
LOC: D.ER 20:31
DX: K21.9 Gastro-esophageal reflux disease without esophagitis (principal); S56.912A Strain of unspecified muscles, fascia and tendons at forearm level, left arm, initial encounter; X50.0XXA Overexertion from strenuous movement or load, initial encounter; Y93.89 Activity, other specified; Y92.89 Other specified places as the place of occurrence of the external cause